=== PATIENT | female | born 1960 | race Caucasian/White ===

== ENCOUNTER 2019-08-24 11:25 | Outpatient (CLI) | payer OTHER ==
--- NOTE | 2019-08-24 12:50 | CT ---
CT ABDOMEN AND PELVIS WITH AND WITHOUT IV CONTRAST: HISTORY: Microscopic hematuria. FINDINGS: Minimal dependent changes are seen in the lung bases. The liver, spleen, pancreas, and adrenal gland s are normal. No calcified gallstones are seen. No free air, free fluid, or lymphadenopathy is note d in the abdomen or pelvis. No calculi are seen in the kidneys, ureters, or the urinary bladder. No enhancing masses are noted. There are small parenchymal cysts in the left kidney. No hydroureteral nephrosis is seen. There are vascular calcifications without evidence of aneurysmal dilatation of the abdominal aorta. The small bowel loops are not abnormally dilated. A normal-appearing appendix is present. Uterus is visualized. There are degenerative changes in the spine. IMPRESSION: No CT evidence of urinary tract calculi/obstruction or enhancing renal mass. POS: OFF
== END 2019-08-24 11:26 | disposition home or self-care (01) ==
LOC: SCSCT 11:25
PROVIDERS: ATTEND Urology
DX: R31.9 Hematuria, unspecified (principal); Z87.442 Personal history of urinary calculi
CPT/HCPCS: 74178